=== PATIENT | female | born 1995 | race Caucasian/White ===

== ENCOUNTER 2019-09-08 15:26 | Emergency (ER) | payer OTHER, SELFPAY ==
[2019-09-08 15:35] VITALS: BP 131/89; PULSE 98; RESP 18; TEMP 36.6; O2SAT 98
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
[2019-09-08] MEDS: metroNIDAZOLE 500 MG TAB 2000 MG PO (17:07)
[2019-09-08] MEDS: cefTRIAXone 250 MG VIAL IM (17:07)
[2019-09-08] MEDS: Azithromycin 250 MG TAB 1000 MG PO (17:08)
[2019-09-10 09:33] LABS: Hepatitis B Surface Ag Negative (Negative)
[2019-09-10 11:06] LABS: HIV-1/2 Ag & Ab Screen Negative (Negative)
[2019-09-10 12:50] LABS: Hepatitis C Ab w Rflx HCV PCR Negative (Negative)
--- NOTE | 2019-10-11 18:11 | NUR.NOTE ---
10/11/2019: Called and spoke with pt as follow-up Nursing Note:
== END 2019-09-08 17:35 | disposition home or self-care (01) ==
PROVIDERS: Emergency Provider Student in an Organized Health Care Education/Training Program; PCP Family Medicine
DX: T76.21XA Adult sexual abuse, suspected, initial encounter (principal); Z53.29 Procedure and treatment not carried out because of patient's decision for other reasons
CPT/HCPCS: 36415; 86803; 87340; 87389; 96372; 99284; 99283; J0696